=== PATIENT | female | born 1965 | race Caucasian/White ===

== ENCOUNTER 2020-10-20 14:48 | Outpatient (REF) | payer BC, SELFPAY ==
--- NOTE | ~2020-10-20 | MM_ITS ---
EXAMINATION: MM SCREENING DIGITAL BREAST TOMOSYNTHESIS, BILATERAL CLINICAL INFORMATION: Screening. Asymptomatic. The lifetime risk of breast cancer based on the Tyrer-Cuzick Model is 9%. COMPARISON: Mammography: 06/25/2019, 05/17/2018, 04/15/2017 TECHNIQUE: Digital breast tomosynthesis is performed in both the craniocaudal and mediolateral oblique views along with computer-aided detection (CAD). Synthesized 2D images are generated from the tomosynthesis. Additional left CC view is provided. FINDINGS: There are scattered areas of fibroglandular density (ACR BI-RADS breast composition Category b). There are no significant masses, abnormal calcifications, or other abnormalities. Nodularity central right breast on CC view is decreased since 2017. There is a dermal lesion overlying the central inner left breast on CC view. The axilla and skin contours are unremarkable. No significant changes from prior exams. MM/MM tomosynthesis screening BI IMPRESSION: No mammographic evidence of malignancy. ASSESSMENT: BI-RADS 2: Benign RECOMMENDATION: Routine annual mammography screening. This patient's information was entered into a reminder system with a target due date for their next mammogram.
== END 2020-10-20 14:49 | disposition home or self-care (01) ==
LOC: HO.MAMMO 14:48
PROVIDERS: PCP Internal Medicine; Visit Provider Internal Medicine
DX: Z12.31 Encounter for screening mammogram for malignant neoplasm of breast (principal)
CPT/HCPCS: 77063; 77067

== ENCOUNTER 2021-12-01 11:52 | Outpatient (REF) | payer BC, SELFPAY ==
--- NOTE | ~2021-12-01 | MM_ITS ---
EXAMINATION: MM SCREENING DIGITAL BREAST TOMOSYNTHESIS, BILATERAL CLINICAL INFORMATION: Screening. Asymptomatic. Status post benign breast biopsy The lifetime risk of breast cancer based on the Tyrer-Cuzick Model is 6.9%. COMPARISON: Mammography: October 20, 2020 and studies dating back to June 15, 2011 TECHNIQUE: Digital breast tomosynthesis is performed in both the craniocaudal and mediolateral oblique views along with computer-aided detection (CAD). Synthesized 2D images are generated from the tomosynthesis. FINDINGS: There are scattered areas of fibroglandular density (ACR BI-RADS breast composition Category b). There are no new significant masses, abnormal calcifications, or other abnormalities. Region of stable architectural distortion seen upper outer aspect of the left breast. MM/MM tomosynthesis screening BI IMPRESSION: There are no significant changes from prior study. ASSESSMENT: BI-RADS 2: Benign RECOMMENDATION: Routine annual mammography screening. This patient's information was entered into a reminder system with a target due date for their next mammogram.
== END 2021-12-01 11:53 | disposition home or self-care (01) ==
LOC: HO.MAMMO 11:52
PROVIDERS: Visit Provider Internal Medicine
DX: Z12.31 Encounter for screening mammogram for malignant neoplasm of breast (principal)
CPT/HCPCS: 77063; 77067

== ENCOUNTER 2022-06-22 15:20 | Outpatient (REF) | payer BC, SELFPAY | END 2022-06-22 15:21 | disposition home or self-care (01) | LOC: HO.SH 15:20 | PROVIDERS: Visit Provider Internal Medicine | DX: Z01.118 Encounter for examination of ears and hearing with other abnormal findings (principal); H90.6 Mixed conductive and sensorineural hearing loss, bilateral | CPT/HCPCS: 92557; 92567 ==

== ENCOUNTER 2023-02-14 15:09 | Outpatient (REF) | payer BC, SELFPAY | END 2023-02-14 15:10 | disposition home or self-care (01) | LOC: HO.MAMMO 15:09 | PROVIDERS: Visit Provider Internal Medicine | DX: Z12.31 Encounter for screening mammogram for malignant neoplasm of breast (principal) | CPT/HCPCS: 77063; 77067 ==

== ENCOUNTER → 2023-02-14 15:30 | Outpatient (BNV) | payer BC, SELFPAY | PROVIDERS: Visit Provider Radiology Diagnostic Radiology | DX: Z12.31 Encounter for screening mammogram for malignant neoplasm of breast (principal) | CPT/HCPCS: 77063; 77067 ==

== ENCOUNTER 2024-04-24 14:41 | Outpatient (REF) | payer BC, SELFPAY ==
--- OUTSIDE RECORDS SUMMARY | 2024-04-25 22:10 | XMS_ITS | Continuity of Care Document ---
Author Organization [facility] Jaiden lt Address [address] [place] [address]- Care Team Providers Care Fuse Coiler Name Role Phone Susana DE LA TORRE, Eliseo Jimenez Primary Care Physician Encounter [facility] [place] Date(s): 03/16/24 - 04/15/24 [facility] Adult [address] [place] [address]- Encounter Type: Triage Allergies, Adverse Reactions, Alerts No Known Allergies Immunizations Given and Recorded Vaccine Date Status Refusal Reason pneumococcal 20-valent conjugate vaccine 1 11/05/22 Given tetanus/diphtheria/pertussis, acel(Tdap) 05/18/22 Given tetanus/diphtheria/pertussis, acel(Tdap) 12/03/11 Recorded SARS-CoV-2 mRNA (aavyjap-peox-szggh) vax 11/26/21 Recorded SARS-CoV-2 (COVID-19) mRNA BNT-162b2 vac 03/09/21 Recorded SARS-CoV-2 (COVID-19) mRNA BNT-162b2 vac 08/15/20 Given SARS-CoV-2 (COVID-19) mRNA BNT-162b2 vac 07/25/20 Given influenza virus vaccine, inactivated 02/04/21 Levi rded influenza virus vaccine, inactivated 02/07/20 Levi rded 1Result Comment: [facility]-[id number] Medications atorvastatin 10 mg oral tablet 1 tablet, By Mouth, Daily, # 90 tablet, 3 Refills, Maintenance, 01/27/24 2:31:00 PM EDT, [id number], 160, cm, 09/06/23 9:12:00 EDT, Height, 98.3, kg, 09/06/23 9:12:00 EDT, Dry Weight Start Date: 01/27/24 Status: Ordered Quantity: 90.0 Unit: tablet Repeat number: 1 Augmentin 875 mg-125 mg oral tablet 1 tablet, By Mouth, Every 12 hours, # 14 tablet, 0 Refills, Maintenance, 03/16/24 11:16:00 AM EDT, [facility]/pharmacy #[id number], Partial fill upon patient request if the prescription is for a schedule II opioiddrug., 160, cm, 03/16/24 11:05:00 EDT, Height, 98.3, kg, 09/06/23 9:12:00 EDT, Dry Weight Start Date: 03/16/24 Status: Ordered Quantity: 14.0 Unit: tablet Repeat number: 1 citalopram 20 mg oral tablet See Instructions, TAKE 1 TABLET BY MOUTH EVERY DAY, # 90 tablet, 1 Refills, Maintenance, 03/14/24 10:15:00 AM EDT, [facility] STORE [facility]016, 160, cm, 01/30/24 9:56:00 EDT, Height, 98.3, kg, 09/06/23 9:12:00 EDT, Dry Weight Start Date: 03/14/24 Status: Ordered Quantity: 90.0 Unit: tablet Repeat number: 1 citalopram 20 mg oral tablet 1 tablet, By Mouth, Daily, # 90 tablet, 1 Refills, Maintenance, 07/21/23 8:31:00 PM EST, [facility]/pharmacy#[id number], 162, cm, 11/05/22 14:07:00 EDT, Height Start Date: 07/21/23 Status: Ordered Quantity: 90.0 Unit: tablet Repeat number: 2 hydrochlorothiazide-lisinopril 12.5 mg-20 mg oral tablet 1 tablet, By Mouth, Daily, # 30 tablet, 11 Refills, Maintenance, 02/13/24 8:20:00 AM EDT, [facility], 30, TAKE 1 TABLET BY MOUTH EVERY DAY, 160, cm, 01/30/24 9:56:00 EDT, Height, 98.3, kg, 09/06/23 9:12:00 EDT, Dry Weight Start Date: 02/13/24 Status: Ordered Quantity: 30.0 Unit: tablet Repeat number: 1 Lisinopril = 20 mg, By Mouth, Daily in AM, 0 Refills, Maintenance, 08/10/23 9:56:00 AM EDT, Partial fill upon patient request if the prescription is for a schedule II opioid drug. Start Date: 08/10/23 Status: Ordered Repeat number: 1 NIFEdipine (Eqv-Procardia XL) 60 mg oral tablet, extended release 1 tablet, By Mouth, 2 times a day, # 180 tablet, 0 Refills, Maintenance, 01/23/24 8:07:00 AM EDT, [facility]/pharmacy #[id number], 160, cm, 09/06/23 9:12:00 EDT, Height, 98.3, kg, 09/06/23 9:12:00 EDT, Dry Weight Start Date: 01/23/24 Status: Ordered Quantity: 180.0 Unit: tablet Repeat number: 1 ofloxacin 0.3% otic solution 5, drops, Ear, Right, 2 times a day, # 5 mL, Refills 0, Tot. Refills 0, Maintenance, 05/18/22 8:17:00AM EST, Route to Pharmacy Electronically, [facility]/pharmacy #[id number], Partial fill upon patient request if the prescription is for a schedule II opioid drug., 162, cm, 05/18/22 8:14:00 EST, Height Start Date: 05/18/22 Status: Ordered Quantity: 5.0 Unit: mL Repeat number: 1 Problem List Condition Confirmation Course Effective Dates Status H ealth Status Informant Alcoholism Confirmed Active Elevated ALT measurement Confirmed Active Anxiety Confirmed Active Right cervical radiculopathy Confirmed Active Depression Confirmed Active History of hysterectomy Confirmed Active Hyperglycemia Confirmed Active Hyperlipidemia Confirmed Active HTN (hypertension) Confirmed Active Impaired fasting glucose Confirmed Active Knee pain Confirmed Active Abnormal mammogram Confirmed Active Axillary lump Confirmed Active Morbid obesity Confirmed Active Sensorineural hearing loss Confirmed Active Severe obesity (BMI 35.0-39.9) with comorbidity Confirmed Active 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 Active Thrombophlebitis Confirmed Active Tobacco use Confirmed Active Leiomyoma of uterus Confirmed Active Social History Social History Type Response Smoking Status Former smoker, quit more than 30 days ago entered on: 11/05/22 Sex Sex Representation Female (finding) Patient Care team information Care Team Personnel Name: Sae Rodriguez RN Position: [facility] RN W/OE and Tasks Member Role: Primary Care Nurse Name: Tri Roque RN [facility] RN Supv Member Role: Primary Care Nurse Name: Edgardo Moreland RN Position: [facility] RN Member Role: Primary Care Nurse Name: Liam Pereira RN Position: [facility] RN Member Role: Primary Care Nurse Name: Eliseo Meza MD Position: [facility] Physician - Primary Care Member Role: PCP Address: [address] [place] [phone]- Telecom: Name: Alissa Aranda RN Position: [facility] Hospital Psychologist Experimental Member Role: Primary Care Nurse Care Team Related Persons Name: EULALIA ROY Name: KEERTHI ROY Insurance Providers Guarantor name: JUSTIN ROY Health Plan Information #: 1 Payer: HMO BLUE IN NETWORK Member Number: NA Policy Number: NA Group Number: NA
--- OUTSIDE RECORDS SUMMARY | 2024-04-25 22:10 | XMS_ITS | Continuity of Care Document ---
Author Organization [facility] Jaiden lt Address [address] [place] [address]- Care Team Providers Care Automobile Drivers Name Role Phone Susana DE LA TORRE, Eliseo Jimenez Primary Care Physician [phone] Encounter [facility] [place] Date(s): 03/16/24 - 04/15/24 [facility] Adult [address] [place] [address]- Attending Physician: Admtr, Ar8 Admitting Physician: Admtr, Ar8 Referring Physician: Admtr, Ar8 Encounter Type: Triage Allergies, Adverse Reactions, Alerts No Known Allergies Immunizations Given and Recorded Vaccine Date Status Refusal Reason pneumococcal 20-valent conjugate vaccine 1 11/05/22 Given tetanus/diphtheria/pertussis, acel(Tdap) 05/18/22 Given tetanus/diphtheria/pertussis, acel(Tdap) 12/03/11 Recorded SARS-CoV-2 mRNA (iectvbm-odec-oobpa) vax 11/26/21 Recorded SARS-CoV-2 (COVID-19) mRNA BNT-162b2 vac 03/09/21 Recorded SARS-CoV-2 (COVID-19) mRNA BNT-162b2 vac 08/15/20 Given SARS-CoV-2 (COVID-19) mRNA BNT-162b2 vac 07/25/20 Given influenza virus vaccine, inactivated 02/04/21 Levi rded influenza virus vaccine, inactivated 02/07/20 Levi rded 1Result Comment: [facility]-[id number] Medications atorvastatin 10 mg oral tablet 1 tablet, By Mouth, Daily, # 90 tablet, 3 Refills, Maintenance, 01/27/24 2:31:00 PM EDT, [id number], 160, cm, 09/06/23 9:12:00 EDT, Height, 98.3, kg, 09/06/23 9:12:00 EDT, Dry Weight Start Date: 01/27/24 Status: Ordered Quantity: 90.0 Unit: tablet Repeat number: 1 Augmentin 875 mg-125 mg oral tablet 1 tablet, By Mouth, Every 12 hours, # 14 tablet, 0 Refills, Maintenance, 03/16/24 11:16:00 AM EDT, [facility]/pharmacy #[id number], Partial fill upon patient [...] 1 Refills, Maintenance, 03/14/24 10:15:00 AM EDT, [facility], 160, cm, 01/30/24 9:56:00 EDT, Height, 98.3, kg, 09/06/23 9:12:00 EDT, Dry Weight Start Date: 03/14/24 Status: Ordered Quantity: 90.0 Unit: tablet Repeat number: 1 citalopram 20 mg oral tablet 1 tablet, By Mouth, Daily, # 90 tablet, 1 Refills, Maintenance, 07/21/23 8:31:00 PM EST, [facility]/pharmacy#[id number], 162, cm, 11/05/22 14:07:00 EDT, Height Start Date: 07/21/23 Status: Ordered Quantity: 90.0 Unit: tablet Repeat number: 2 hydrochlorothiazide-lisinopril 12.5 mg-20 mg oral tablet 1 tablet, By Mouth, Daily, # 30 tablet, 11 Refills, Maintenance, 02/13/24 8:20:00 AM EDT, [facility], 30, TAKE 1 TABLET BY MOUTH EVERY [...] 0 Refills, Maintenance, 01/23/24 8:07:00 AM EDT, [facility]/pharmacy #[id number], 160, cm, 09/06/23 9:12:00 EDT, Height, 98.3, kg, 09/06/23 9:12:00 EDT, Dry Weight Start Date: 01/23/24 Status: Ordered Quantity: 180.0 Unit: tablet Repeat number: 1 ofloxacin 0.3% otic solution 5, drops, Ear, Right, 2 times a day, # 5 mL, Refills 0, Tot. Refills 0, Maintenance, 05/18/22 8:17:00AM EST, Route to Pharmacy Electronically, [facility]/pharmacy #[id number], Partial fill upon patient [...] Confirmed Active Leiomyoma of uterus Confirmed Active Procedures Procedure Date Related Diagnosis Body Site Status Arthroscopy of knee 1 Com pleted Hysterectomy Completed Tonsillectomy and adenoidectomy Completed Tympanoplasty Completed 1WITH MENISCECTOMY Social History Social History Type Response Smoking Status Former smoker, quit more than 30 days ago entered on: 11/05/22 Sex Sex Representation Female (finding) EKG study * Event Display: EKG Authored Date: MG Breast Views * Event Display: MM Mammogram Authored Date: * Event Display: MM Mammogram Authored Date: * Event Display: MM Mammogram Authored Date: Patient Care team information Care Team Personnel Name: Sae Rodriguez RN Position: [facility] ED RN W/OE and Tasks Member Role: Primary Care Nurse Name: Tri Roque RN Position: [facility] RN Supv Member Role: Primary Care Nurse Name: Edgardo Moreland RN Position: [facility] RN Member Role: Primary Care Nurse Name: Liam Pereira RN Position: [facility] RN Member Role: Primary Care Nurse Name: Eliseo Meza MD Position: [facility] Physician - Primary Care Member Role: PCP Address: [address] [place] [id number] Telecom: Name: Alissa Aranda RN Position: [facility] Hospital Relief Pharmacist Member Role: Primary Care Nurse Care Team Related Persons Name: EULALIA ROY Name: KEERTHI ROY Insurance Providers Guarantor name: JUSTIN ROY Health Plan Information #: 1 Payer: O BLUE IN NETWORK Member Number: NA Policy Number: NA Group Number: NA
--- OUTSIDE RECORDS SUMMARY | 2024-04-25 22:10 | XMS_ITS | Continuity of Care Document ---
Author Organization [facility] Jaiden lt Address [address] [place] [address]- Care Team Providers Care Side Stitching Machine Operator Name Role Phone Susana DE LA TORRE, Eliseo Jimenez Primary Care Physician Encounter [facility] [place] Date(s): 03/14/24 - 04/13/24 [facility] Adult [address] [place] [address]- Encounter Type: Triage Allergies, Adverse Reactions, Alerts No Known Allergies Immunizations Given and Recorded Vaccine Date Status Refusal Reason pneumococcal 20-valent conjugate vaccine 1 11/05/22 Given tetanus/diphtheria/pertussis, acel(Tdap) 05/18/22 Given tetanus/diphtheria/pertussis, acel(Tdap) 12/03/11 Recorded SARS-CoV-2 mRNA (gowzxce-mthz-wdmar) vax 11/26/21 Recorded SARS-CoV-2 (COVID-19) mRNA BNT-162b2 vac 03/09/21 Recorded SARS-CoV-2 (COVID-19) mRNA BNT-162b2 vac 08/15/20 Given SARS-CoV-2 (COVID-19) mRNA BNT-162b2 vac 07/25/20 Given influenza virus vaccine, inactivated 02/04/21 Levi rded influenza virus vaccine, inactivated 02/07/20 Levi rded 1Result Comment: [id number] Medications atorvastatin 10 mg oral tablet 1 tablet, By Mouth, Daily, # 90 tablet, 3 Refills, Maintenance, 01/27/24 2:31:00 PM EDT, [facility], 160, cm, 09/06/23 9:12:00 EDT, Height, 98.3, kg, 09/06/23 9:12:00 EDT, Dry Weight Start Date: 01/27/24 Status: Ordered Quantity: 90.0 Unit: tablet Repeat number: 1 Augmentin 875 mg-125 mg oral tablet 1 tablet, By Mouth, Every 12 hours, # 14 tablet, 0 Refills, Maintenance, 03/16/24 11:16:00 AM EDT, [facility]/pharmacy #[id number], Partial fill upon patient request if [...] 1 Refills, Maintenance, 03/14/24 10:15:00 AM EDT, [facility] STORE [facility]14, 160, cm, 01/30/24 9:56:00 EDT, Height, 98.3, kg, 09/06/23 9:12:00 EDT, Dry Weight Start Date: 03/14/24 Status: Ordered Quantity: 90.0 Unit: tablet Repeat number: 1 citalopram 20 mg oral tablet 1 tablet, By Mouth, Daily, # 90 tablet, 1 Refills, Maintenance, 07/21/23 8:31:00 PM EST, [facility]/pharmacy#[id number], 162, cm, 11/05/22 14:07:00 EDT, Height Start Date: 07/21/23 Status: Ordered Quantity: 90.0 Unit: tablet Repeat number: 2 hydrochlorothiazide-lisinopril 12.5 mg-20 mg oral tablet 1 tablet, By Mouth, Daily, # 30 tablet, 11 Refills, Maintenance, 02/13/24 8:20:00 AM EDT, [facility], 30, TAKE 1 TABLET BY MOUTH EVERY [...] 0 Refills, Maintenance, 01/23/24 8:07:00 AM EDT, [facility]/pharmacy #[id number], 160, cm, 09/06/23 9:12:00 EDT, Height, 98.3, kg, 09/06/23 9:12:00 EDT, Dry Weight Start Date: 01/23/24 Status: Ordered Quantity: 180.0 Unit: tablet Repeat number: 1 ofloxacin 0.3% otic solution 5, drops, Ear, Right, 2 times a day, # 5 mL, Refills 0, Tot. Refills 0, Maintenance, 05/18/22 8:17:00AM EST, Route to Pharmacy Electronically, [facility]/pharmacy #[id number], Partial fill upon patient request if [...] Care Nurse Name: Tri Roque RN Position: [facility] RN Supv Member Role: Primary Care Nurse Name: Edgardo Moreland RN Position: [facility] RN Member Role: Primary Care Nurse Name: Liam Pereira RN Position: [facility] RN Member Role: Primary Care Nurse Name: Eliseo Meza MD Position: [facility] Physician - Primary Care Member Role: PCP Address: [address] [place] [phone]- Telecom: Name: Alissa Aranda RN Position: [facility] Hospital Geographic Information System Surveyor Member Role: Primary Care Nurse Care Team Related Persons Name: EULALIA ROY Name: KEERTHI ROY Insurance Providers Guarantor name: JUSTIN ROY Health Plan Information #: 1 Payer: HMO BLUE IN NETWORK Member Number: NA Policy Number: NA Group Number: NA
--- OUTSIDE RECORDS SUMMARY | 2024-04-25 22:10 | XMS_ITS | Continuity of Care Document ---
Author Organization [facility] [place] Jaiden lt Address [address] [place] [address]- Care Team Providers Care Private Equity Analyst Name Role Phone Susana DE LA TORRE, Eliseo Jimenez Primary Care Physician En[place] [facility] [place] Date(s): 03/19/24 - 04/18/24 [facility] [place] Adult [address] [place] [address]- Encounter Type: Triage Allergies, Adverse Reactions, Alerts No Known Allergies Immunizations Given and Recorded Vaccine Date Status Refusal Reason pneumococcal 20-valent conjugate vaccine 1 11/05/22 Given tetanus/diphtheria/pertussis, acel(Tdap) 05/18/22 Given tetanus/diphtheria/pertussis, acel(Tdap) 12/03/11 Recorded SARS-CoV-2 mRNA (yqltoeb-gnst-dznvu) vax 11/26/21 Recorded SARS-CoV-2 (COVID-19) mRNA BNT-162b2 vac 03/09/21 Recorded SARS-CoV-2 (COVID-19) mRNA BNT-162b2 vac 08/15/20 Given SARS-CoV-2 (COVID-19) mRNA BNT-162b2 vac 07/25/20 Given influenza virus vaccine, inactivated 02/04/21 Levi rded influenza virus vaccine, inactivated 02/07/20 Levi rded 1Result Comment: [facility]-[id number] Medications atorvastatin 10 mg oral tablet 1 tablet, By Mouth, Daily, # 90 tablet, 3 Refills, Maintenance, 01/27/24 2:31:00 PM EDT, [facility], 160, cm, 09/06/23 9:12:00 EDT, Height, 98.3, kg, 09/06/23 9:12:00 EDT, Dry Weight Start Date: 01/27/24 Status: Ordered Quantity: 90.0 Unit: tablet Repeat number: 1 Augmentin 875 mg-125 mg oral tablet 1 tablet, By Mouth, Every 12 hours, # 14 tablet, 0 Refills, Maintenance, 03/16/24 11:16:00 AM EDT, [facility]/pharmacy #[id number], Partial fill upon patient request if [...] 1 Refills, Maintenance, 03/14/24 10:15:00 AM EDT, [facility] STORE [address]37, 160, cm, 01/30/24 9:56:00 EDT, Height, 98.3, kg, 09/06/23 9:12:00 EDT, Dry Weight Start Date: 03/14/24 Status: Ordered Quantity: 90.0 Unit: tablet Repeat number: 1 citalopram 20 mg oral tablet 1 tablet, By Mouth, Daily, # 90 tablet, 1 Refills, Maintenance, 07/21/23 8:31:00 PM EST, [facility]/pharmacy#0315, 162, cm, 11/05/22 14:07:00 EDT, Height Start Date: 07/21/23 Status: Ordered Quantity: 90.0 Unit: tablet Repeat number: 2 hydrochlorothiazide-lisinopril 12.5 mg-20 mg oral tablet 1 tablet, By Mouth, Daily, # 30 tablet, 11 Refills, Maintenance, 02/13/24 8:20:00 AM EDT, [facility], 30, TAKE 1 TABLET BY MOUTH EVERY [...] 0 Refills, Maintenance, 01/23/24 8:07:00 AM EDT, [facility]/pharmacy #0315, 160, cm, 09/06/23 9:12:00 EDT, Height, 98.3, kg, 09/06/23 9:12:00 EDT, Dry Weight Start Date: 01/23/24 Status: Ordered Quantity: 180.0 Unit: tablet Repeat number: 1 ofloxacin 0.3% otic solution 5, drops, Ear, Right, 2 times a day, # 5 mL, Refills 0, Tot. Refills 0, Maintenance, 05/18/22 8:17:00AM EST, Route to Pharmacy Electronically, [facility]/pharmacy #[id number], Partial fill upon patient request if [...] Care Nurse Name: Tri Roque RN Position: [facility] RN Supv Member Role: Primary Care Nurse Name: Edgardo Moreland RN Position: [facility] RN Member Role: Primary Care Nurse Name: Liam Pereira RN Position: [facility] RN Member Role: Primary Care Nurse Name: Eliseo Meza MD Position: [facility] Physician - Primary Care Member Role: PCP Address: [address] [place] [id number]- Telecom: Name: Alissa Aranda RN Position: [facility] Hospital Coil Shaper Member Role: Primary Care Nurse Care Team Related Persons Name: EULALIA ROY Name: KEERTHI ROY Insurance Providers Guarantor name: JUSTIN ROY Health Plan Information #: 1 Payer: HMO BLUE IN NETWORK Member Number: NA Policy Number: NA Group Number: NA
--- OUTSIDE RECORDS SUMMARY | 2024-04-25 22:10 | XMS_ITS | Data Portability ---
Author Organization [place] - [facility], Allergy Address [address] [address] Care Team Providers Care Dipping Machine Operator Name Role Phone IRISH ESPINOZA Primary Care Provider Assessment Encounter Date Assessment Date Assessment LastModified by Organization Details LastModified Time 10/03/2023 10/03/2023 Patient has significant granulation tissue and some otorrhea in the right external auditory canal which was cleaned out today. Silver nitrate applied to the site of granulation. I am placing the patient on topical TobraDex drops to be used twice a day for 2 weeks. Follow-up in 4 weeks for reevaluation. She will continue to maintain dry ear precautions. [email or web address] Not available 10/03/2023 11:13:19 10/31/2023 10/31/2023 The right ear has healed well following tympanoplasty. All water and activity precautions are lifted.Audiomet kayli testing today showed improvement in the hearing compared to preoperative audiogram. This may continue to improve over time. Recommend follow-up exam and audiogram in 6 months. Not available 10/31/2023 12:01:50 Plan of Treatment Reminders Order Date Submit Date Provider Last Modified By Organization Details Last Modified Time Details Appointments Hearing Test 2023 09:30A M Hearing Test Not available Not available Not available Establish ed 10 2023 09:50A M JORDY SHAW MD Not available Not available Not available Lab None recorded. Referral None recorded. Procedures None recorded. Surgeries None recorded. Imaging None recorded. Medication Orders TobraDex 0.3 %-0.1 % eye drops,enrrique pension 2023 024 [email or web address] [id number], [address] [place], [address], 10/31/2023 11:13:58 Patient TargetsNo targets recorded. Patient InstructionsNo instructions recorded. Reason for Referral None Reported. Results Created Date Observation Date Name Description Value Unit Range Abnormal Flag Note LastModifiedBy Organization Detail LastModifiedTime 10/31/19 audio gram No observ ation record ed. BARCODE Not Available 2023 16:21:04 01/05/20 24 05/31/2023 imagi ng/di agnos tic resul t No observ ation record ed. [email or web address] Not Available 18:28:27 01/05/20 24 06/22/2022 imagi ng/di agnos tic resul t No observ ation record ed. [email or web address] Not Available 18:28:30 01/05/20 24 07/21/2023 imagi ng/di agnos tic resul t No observ ation record ed. [email or web address] Not Available 18:28:35 Result Notes None recorded. Problems Name Problem SNOMED Code Status Onset Date Resolution Date Notes Provider Name and Address Organization Details Recorded Time Sensorine ural hearing loss in left ear 69727275722 109 Active 2023 Sensorine ural hearing loss, unilatera l, left ear, with restricte d hearing on the contralat eral side; Note: Date Diagnosed : 05/31/2023 9:58 AM (H90.A22) Not Available [facility] 4 03:12:55 Otorrhea of right ear 64888014803 91563 Active 2022 Otorrhea, right ear; Note: Date Diagnosed : 11/01/2022 11:24 AM (H92.11) Not Available [facility] 4 03:12:55 Mixed conductiv e and sensorine ural hearing loss, bilateral 595254020 Active 2022 Mixed conductiv e and sensorine ural hearing loss, bilateral ; Note: Date Diagnosed : 11/01/2022 11:24 AM (H90.6) Not Available [facility] 4 03:12:55 Mixed conductiv e and sensorine ural hearing loss of right ear 14821185282 105 Active 2023 Mixed conductiv e and sensorine ural hearing loss, unilatera l, right ear, with unrestric gustabo hearing on the contralat eral side; Note: Date Diagnosed : 05/31/2023 9:58 AM (H90.71) Not Available [facility] 4 03:12:55 Abnormal granulati on tissue 12325840 Active 2023 JORDY SHAW MD [address] [place] [address], [place], [address] , [facility] - [facility] 4 11:07:37 Follow-up visit Active 2023 Medical surveilla nce following completed treatment ; Note: Date Diagnosed : 08/22/2023 2:42 PM (Z09) Not Available [facility] 4 03:12:54 Tympanosc lerosis of right middle ear 63426256083 216507 Active 2023 Tympanosc lerosis, right ear; Note: Date Diagnosed : 08/12/2023 2:27 PM (H74.01) Not Available [facility] 4 03:12:54 Granuloma tous disorder of the skin and subcutane ous tissue 337487419 Active 2022 Granuloma tous disorder of the skin and subcutane ous tissue, unspecifi ed; Note: Date Diagnosed : 11/30/2022 3:42 PM (L92.9) Not Available [facility] 4 03:12:55 Foreign body in right ear 59271301699 159409 Active 2023 Foreign body in right ear, subsequen t encounter ; Note: Date Diagnosed : 08/12/2023 3:01 PM (T16.1XXD ) Not Available [facility] 4 03:12:55 Marginal perforati on of tympanic membrane 50210739 Active 2023 Other marginal perforati ons of tympanic membrane, right ear; Note: Date Diagnosed : 08/12/2023 2:23 PM (H72.2X1) Not Available [facility] 4 03:12:56 Problem Notes None recorded. Procedures Surgical History Date Name Laterality Status Provider Name and Address Organization Details Recorded Time 10/31/19 24 Comp Audio with Tymps (83996 & 12268) completed AMARILYS INMAN, [facility] [address] [address], [place], [address], [facility] - [facility] 10/31/2023 11:31:45 08/12/19 24 type 2 tympanoplasty completed Ida Woodruff [facility] - [facility] 10/03/2023 11:16:30 Imaging Results Imaging Date Name Status LastModified by Organiz ation Details LastModified Time 10/31/2023 audiogram completed BAR[facility] Information no t available 10/31/2023 16:21:04 05/31/2023 imaging/diagno stic result completed [email or web address] Information not available 01/05/2024 18:28:27 06/22/2022 imaging/diagno stic result completed [email or web address] Information not available 01/05/2024 18:28:30 07/21/2023 imaging/diagno stic result completed [email or web address] Information not available 01/05/2024 18:28:35 Procedure Notes None recorded. Medical Equipment None Reported. Allergies No known drug allergies Medications Name Sig Start Date Stop Date Status Note LastModified by Organization Details LastModified Time prednison e 10 mg tablet TAKE 4 TABS DAILY FOR 3 DAYS, 3 TABS DAILY FOR 3 DAYS,2 TABS DAILY FOR 3 DAYS,THE N 1 TAB DAILY 10/30 completed Not Available Not Available Not Available atorvasta tin 10 mg tablet active Medicati on ID: [id number] B rand Name: atorvast atin Sen d Method: E-Prescr ibed Sub s Allowed: subs OK Medic ationGen ericName : atorvast atin Not Available Not Available Not Available lisinopri l 20 mg-hydroc hlorothia zide 12.5 mg tablet active Medicati on ID: [id number] B rand Name: lisinopr il-hydro chloroth iazide S end Method: E-Prescr ibed Sub s Allowed: subs OK Medic ationGen ericName : lisinopr il-hydro chloroth iazide Not Available Not Available Not Available ofloxacin 0.3 % ear drops INSTILL 4 DROPS INTO THE RIGHT EAR TWICE A DAY 10/02 completed Not Available Not Available Not Available citalopra m 20 mg tablet active Medicati on ID: [id number] B rand Name: citalopr am Send Method: E-Prescr ibed Sub s Allowed: subs OK Medic ationGen ericName : citalopr am Not Available Not Available Not Available nifedipin e ER 60 mg tablet,ex tended release 24 hr active Medicati on ID: [id number] B rand Name: nifedipi ne Send Method: E-Prescr ibed Sub s Allowed: subs OK Medic ationGen ericName : nifedipi ne Not Available Not Available Not Available tobramyci n 0.3 %-dexamet hasone 0.1 % eye drops,enrrique pension APPLY 4 DROPS INTO THE RIGHT EAR TWICE A DAY FOR 2 WEEKS 10/30 completed Not Available Not Available Not Available oxycodone 5 mg tablet TAKE 1 TABLET ORAL EVERY FOUR HOURS NEEDED FOR PAIN 10/02 completed Not Available Not Available Not Available escitalop johana 20 mg tablet TAKE 1 TABLET BY MOUTH EVERY DAY 10/02 completed Not Available Not Available Not Available ciproflox acin 0.3 %-dexamet hasone 0.1 % ear drops,enrrique pension INSTILL 4 DROP INTO RIGHT EAR TWICE A DAY DIRECTED X 14 DAYS 10/30 completed Not Available Not Available Not Available GaviLyte- G 236 gram-22.7 4 gram-6.74 gram-5.86 gram oral solution PLEASE SEE ATTACHED FOR DETAILED DIRECTIO NS 10/02 completed Not Available Not Available Not Available Vitals Date Recorded Body height Body weight Provider Name and Address Organization Details Last Updated DateTime 10/31/2023 160.02 cm 80971.36 g Ida Woodruff [place] - [facility] 10/31/2023 11:13:41 Social History None recorded. Functional Status None recorded. Mental Status None recorded. Family History Nothing Reported. Medical History Condition Response High Cholesterol Y Hypertension Y Gynecological HistoryNo gynecological history recorded. Obstetrics History GPAL:G 0 P 0 0 0 0 Past Encounters Encounter ID Performer Location Encounter Start Date Encounter Closed Date Diagnosis/Indication Diagnosis SNOMED-CT Code Diagnosis ICD10 Code [id number] JORDY SHAW MD [facility] [address] [place] [address] 10/03/2023 10:48:43 10/03/2023 13:48:48 Abnormal granulation tissue 72204923 L92.9 Otorrhea of right ear 10 94379176 026876 H92.11 [id number] JORDY SHAW MD [facility] [address] [place] [address] 10/31/2023 10:41:17 10/31/2023 12:03:54 Mixed conductive and sensorineural hearing loss of right ear 0060624776 9105 H90.71 Sensorineu ral hearing loss in left ear 4914281881 9109 H90.A22 Health Concerns Section Related Observation LastModified by Organization Detai ls LastModified Time None Recorded Concern Status LastModified by Organization Details LastModified Time None Recorded Advance Directives Directive None Recorded Payers Encounter Date Sequence Insurance Name Policy Number Policy Larsen Covered Member ID Larsen Member ID Guarantor Name 10/03/2023 1 [facility] [place] [place] [id number] Lotus Cuellar [id number] Lotus Cuellar 10/31/2023 1 [facility] [facility] [place] [place] [id number] Lotus Cuellar [id number] Lotus Cuellar Notes Date Note Type Note Provider Name and Address Organization Details Recorded Time 10/03/2023 text/html Status post righ t revision postauricular tympanoplasty with underlay fascia graft on 08/12/2023. 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 This was removed and the ossicular chain was noted to be intact and mobile. Uneventful postoperative course. Patient was able to use drops as prescribed. She still notes hearing loss in the right ear compared to the left. JORDY SHAW MD [address] [place] [address], [address], [place] - [facility] 10/03/2023 11:15:09 10/31/2023 text/html Status post righ t postauricular tympanoplasty on August 12, 2023. 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 A 60% perforation of the posterior half of the tympanic membrane was repaired using an underlay fascia graft. JORDY SHAW MD [address] [place] [address], [place], [address], [facility] - [facility] 10/31/2023 12:02:16 OBGyn Episode No OBEpisode recorded.
--- OUTSIDE RECORDS SUMMARY | 2024-04-25 22:10 | XMS_ITS | Continuity of Care Document ---
Author Organization [facility] [place] Address [address] [place] [address]- Care Team Providers Care Asset Protection Officer Name Role Phone Susana DE LA TORRE, Eliseo Jimenez Primary Care Physician Encounter [facility] Date(s): 03/15/24 - 04/14/24 [facility] [address] [place] [address]- Encounter Type: Triage Allergies, Adverse Reactions, Alerts No Known Allergies Immunizations Given and Recorded Vaccine Date Status Refusal Reason pneumococcal 20-valent conjugate vaccine 1 11/05/22 Given tetanus/diphtheria/pertussis, acel(Tdap) 05/18/22 Given tetanus/diphtheria/pertussis, acel(Tdap) 12/03/11 Recorded SARS-CoV-2 mRNA ([id number]) vax 11/26/21 Recorded SARS-CoV-2 (COVID-19) mRNA BNT-162b2 vac 03/09/21 Recorded SARS-CoV-2 (COVID-19) mRNA BNT-162b2 vac 08/15/20 Given SARS-CoV-2 (COVID-19) mRNA BNT-162b2 vac 07/25/20 Given influenza virus vaccine, inactivated 02/04/21 Levi rded influenza virus vaccine, inactivated 02/07/20 Levi rded 1Result Comment: [facility]-[id number] Medications atorvastatin 10 mg oral tablet 1 tablet, By Mouth, Daily, # 90 tablet, 3 Refills, Maintenance, 01/27/24 2:31:00 PM EDT, [id number], 160, cm, 09/06/23 9:12:00 EDT, Height, 98.3, kg, 09/06/23 9:12:00 EDT, Dry Weight Start Date: 01/27/24 Status: Ordered Quantity: 90.0 Unit: tablet Repeat number: 1 Augmentin 875 mg-125 mg oral tablet 1 tablet, By Mouth, Every 12 hours, # 14 tablet, 0 Refills, Maintenance, 03/16/24 11:16:00 AM EDT, [facility]/pharmacy #[id number], Partial fill upon patient request [...] 1 Refills, Maintenance, 03/14/24 10:15:00 AM EDT, [id number], 160, cm, 01/30/24 9:56:00 EDT, Height, 98.3, kg, 09/06/23 9:12:00 EDT, Dry Weight Start Date: 03/14/24 Status: Ordered Quantity: 90.0 Unit: tablet Repeat number: 1 citalopram 20 mg oral tablet 1 tablet, By Mouth, Daily, # 90 tablet, 1 Refills, Maintenance, 07/21/23 8:31:00 PM EST, [facility]/pharmacy#[id number], 162, cm, 11/05/22 14:07:00 EDT, Height Start Date: 07/21/23 Status: Ordered Quantity: 90.0 Unit: tablet Repeat number: 2 hydrochlorothiazide-lisinopril 12.5 mg-20 mg oral tablet 1 tablet, By Mouth, Daily, # 30 tablet, 11 Refills, Maintenance, 02/13/24 8:20:00 AM EDT, [facility], 30, TAKE 1 TABLET BY MOUTH EVERY [...] 0 Refills, Maintenance, 01/23/24 8:07:00 AM EDT, [facility]/pharmacy #[id number], 160, cm, 09/06/23 9:12:00 EDT, Height, 98.3, kg, 09/06/23 9:12:00 EDT, Dry Weight Start Date: 01/23/24 Status: Ordered Quantity: 180.0 Unit: tablet Repeat number: 1 ofloxacin 0.3% otic solution 5, drops, Ear, Right, 2 times a day, # 5 mL, Refills 0, Tot. Refills 0, Maintenance, 05/18/22 8:17:00AM EST, Route to Pharmacy Electronically, [facility]/pharmacy #[id number], Partial fill upon patient request [...] Care Nurse Name: Tri Roque RN Position: [facility] RN Supv Member Role: Primary Care Nurse Name: Edgardo Moreland RN Position: [facility] RN Member Role: Primary Care Nurse Name: Liam Pereira RN Position: [facility] RN Member Role: Primary Care Nurse Name: Eliseo Meza MD Position: [facility] Physician - Primary Care Member Role: PCP Address: [address] [place] [address]- Telecom: Name: Alissa Aranda RN Position: [facility] Hospital Contact Lens Polisher Member Role: Primary Care Nurse Care Team Related Persons Name: EULALIA ROY Name: KEERTHI ROY Insurance Providers Guarantor name: JUSTIN ROY Health Plan Information #: 1 Payer: HMO [employer] Member Number: NA Policy Number: NA Group Number: NA
== END 2024-04-24 14:42 | disposition home or self-care (01) ==
LOC: HO.MAMMO 14:41
PROVIDERS: Visit Provider Internal Medicine
DX: Z12.31 Encounter for screening mammogram for malignant neoplasm of breast (principal)
CPT/HCPCS: 77063; 77067

== ENCOUNTER → 2024-04-24 15:30 | Outpatient (BNV) | payer BC, SELFPAY | PROVIDERS: Visit Provider Internal Medicine | DX: Z12.31 Encounter for screening mammogram for malignant neoplasm of breast (principal) | CPT/HCPCS: 77063; 77067 ==

== ENCOUNTER 2025-04-30 14:25 | Outpatient (REF) | payer BC, SELFPAY ==
--- OUTSIDE RECORDS SUMMARY | 2025-04-30 18:42 | XMS_ITS | Data Portability ---
Author Organization [place] - 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 [email or web address] Not available 10/03/2023 11:13:19 10/31/2023 10/31/2023 The right ear has healed well following tympanoplasty. All water and activity precautions are lifted.Audiometr ic testing today showed improvement in the hearing compared to preoperative audiogram. This may continue to improve over time. Recommend follow-up exam and audiogram in 6 months. [email or web address] Not available 10/31/2023 12:01:50 05/10/2024 05/10/2024 The right ear remains well-healed following tympanoplasty. Audiometric testing today showed mild residual mixed hearing loss on the right. She has sensorineural hearing loss on the left. Today we discussed that the ear should remain healthy long-term. No water precautions. We discussed her audiometric testing in detail and discussed her candidacy for amplification. She does not think her hearing loss is bothering her that much as to want to consider amplification. We discussed how her hearing loss may have an effect on hearing in noise and with directional hearing. Patient will think about this and contact us if she wants to learn more about amplification options which can be done through our office. Otherwise she will follow-up as needed edith Not available 05/10/2024 10:26:47 Plan of Treatment Reminders Order Date Submit Date Provider Last Modified By Organization Details Last Modified Time Details Appointments None recorded. Lab None recorded. Referral None recorded. Procedures None recorded. Surgeries None recorded. Imaging None recorded. Medication Orders TobraDex 0.3 %-0.1 % eye drops,susp ension 2023 024 [email or web address] [id number], [address] [place] [address], [place], [address], 11:13:58 Patient TargetsNo targets recorded. Patient InstructionsNo [...] ation record ed. [email or web address] Not Available 18:28:35 05/10/20 24 audio gram No observ ation record ed. [email or web address] Not Available 2023 17:51:39 Result Notes None recorded. Problems Name Problem SNOMED Code Status Onset Date Resolution Date Notes Provider Name and Address Organization Details Recorded Time Otorrhea of right ear 76525558090 14248 Completed 202205/10/2024 Otorrhea , right ear; Note: Date Diagnose d: 3 11:24 AM (H92.11) JORDY SHAW MD [address] [place] [address], [place], [address] , [place] - [facility] 4 10:24:03 Granulom atous disorder of the skin and subcutan eous tissue 534990934 Completed 202205/10/2024 Granulom atous disorder of the skin and subcutan eous tissue, unspecif ied; Note: Date Diagnose d: 3 3:42 PM (L92.9) JORDY SHAW MD [address] [facility],[place] [address], [place], [address] , [place] - [facility] 4 10:23:07 Sensorin eural hearing loss in left ear 22154504954 109 Active 2023 Sensorin eural hearing loss, unilater al, left ear, with restrict ed hearing on the contrala teral side; Note: Date Diagnose d: 4 9:58 AM (H90.A22 ) Not Available [facility] 4 03:12:55 Mixed conducti ve and sensorin eural hearing loss of right ear 99702432434 105 Active 2023 Mixed conducti ve and sensorin eural hearing loss, unilater al, right ear, with unrestri cted hearing on the contrala teral side; Note: Date Diagnose d: 4 9:58 AM (H90.71) Not Available [facility] 4 03:12:55 Tympanos clerosis of right middle ear 76896835438 487393 Active 2023 Tympanos clerosis , right ear; Note: Date Diagnose d: 4 2:27 PM (H74.01) Not Available [facility] 4 03:12:54 Foreign body in right ear 22207697494 789560 Completed 202305/10/2024 Foreign body in right ear, subseque nt encounte r; Note: Date Diagnose d: 4 3:01 PM (T16.1XX D) JORDY SHAW MD [address] [facility], [place], [address] , [place] - [facility] 4 10:23:55 Marginal perforat ion of tympanic membrane 13484157 Completed 202305/10/2024 Other marginal perforat ions of tympanic membrane , right ear; Note: Date Diagnose d: 4 2:23 PM (H72.2X1 ) JORDY SHAW MD [address] [facility],[place] [address], [place], [address] , [place] - [facility] 4 10:23:14 Follow-u p visit Active 2023 Medical surveill ance followin g complete d treatmen t; Note: Date Diagnose d: 08/22/2023 2:42 PM (Z09) Not Available [facility] 03:12:54 Abnormal granulat ion tissue 31289025 Completed 202305/10/2024 JORDY SHAW MD [address] [facility],[place] [address], [place], [address] , [place] - [facility] 4 10:23:39 Problem Notes None recorded. Procedures Surgical History Date Name Laterality Status Provider Name and Address Organization Details Recorded Time 05/10/20 24 Comp Audio with Tymps - 71662 & 03204 completed MARIELY URIAS, [facility] [address] [facility],[place] [address], [place], [address], [place] - [facility] 05/10/2024 09:37:34 10/31/19 24 Comp Audio with Tymps - 74004 & 19669 completed AMARILYS INMAN AUD [address] [facility],[address], [address], [place] - [facility] 10/31/2023 11:31:45 08/12/19 24 type 2 tympanoplasty completed Ida Woodruff [place] - [facility] 10/03/2023 11:16:30 Imaging Results None recorded. Procedure Notes None recorded. Medical Equipment None Reported. Allergies No known drug allergies Medications Name Sig Start Date Stop Date Status Note LastModified by Organization Details LastModified Time amoxicillin 500 mg capsule TAKE 1 CAPSULE BY MOUTH THREE TIMES A DAY active Not Available Not Available No t Available prednisone 10 mg tablet TAKE 4 TABS DAILY FOR 3 DAYS, 3 TABS DAILY FOR 3 DAYS,2 TABS DAILY FOR 3 DAYS,THEN 1 TAB DAILY 10/30 completed Not Available Not Available Not Available atorvastati n 10 mg tablet TAKE 1 TABLET BY MOUTH EVERY DAY active Not Available Not Available No t Available lisinopril 20 mg-hydrochl orothiazide 12.5 mg tablet TAKE 1 TABLET BY MOUTH EVERY DAY active Not Available Not Available No t Available prednisone 20 mg tablet TAKE 2 TABLETS BY MOUTH EVERY DAY FOR 4 DAYS active Not Available Not Available No t Available ofloxacin 0.3 % ear drops INSTILL 4 DROPS INTO THE RIGHT EAR TWICE A DAY 10/02 completed Not Available Not Available Not Available citalopram 20 mg tablet TAKE 1 TABLET BY MOUTH EVERY DAY active Not Available Not Available No t Available nifedipine ER 60 mg tablet,exte nded release 24 hr TAKE 1 TABLET BY MOUTH TWICE A DAY active Not Available Not Available No t Available amoxicillin 875 mg-potassiu m clavulanate 125 mg tablet TAKE 1 TABLET BY MOUTH EVERY 12 HOURS active Not Available Not Available No t Available tobramycin 0.3 %-dexametha sone 0.1 % eye drops,suspe nsion APPLY 4 DROPS INTO THE RIGHT EAR TWICE A DAY FOR 2 WEEKS 10/30 completed Not Available Not Available Not Available oxycodone 5 mg tablet TAKE 1 TABLET ORAL EVERY FOUR HOURS NEEDED FOR PAIN 10/02 completed Not Available Not Available Not Available escitalopra m 20 mg tablet TAKE 1 TABLET BY MOUTH EVERY DAY 10/02 completed Not Available Not Available Not Available ciprofloxac in 0.3 %-dexametha sone 0.1 % ear drops,suspe nsion INSTILL 4 DROP INTO RIGHT EAR TWICE A DAY DIRECTED X 14 DAYS 10/30 completed Not Available Not Available Not Available chlorhexidi ne gluconate 0.12 % mouthwash RINSE MOUTH WITH 15ML (1 CAPFUL) FOR 30 SECONDS IN MORNING AND EVENING AFTER BRUSHING, THEN SPIT active Not Available Not Available No t Available GaviLyte-G 236 gram-22.74 gram-6.74 gram-5.86 gram oral solution PLEASE SEE ATTACHED FOR DETAILED DIRECTION S 10/02 completed Not Available Not Available Not Available Vitals Date Recorded Body height Body weight Provider Name and Address Organization Details Last Updated DateTime 10/31/2023 160.02 cm 26519.36 g Iad Woodruff [place] [facility] 10/31/2023 11:13:41 Social History None recorded. Functional Status None recorded. Mental Status None recorded. Family History Nothing Reported. Medical History Condition Response Hypertension Y High Cholesterol Y Gynecological HistoryNo gynecological history recorded. Obstetrics History GPAL:G 0 P 0 0 0 0 Past Encounters Encounter ID Performer Location Encounter Start Date Encounter Closed Date Diagnosis/Indication Diagnosis SNOMED-CT Code Diagnosis ICD10 Code Diagnosis IMO Codes Diagnosis Note [id number] JORDY SHAW MD [facility] [address] [address] 10/03/2023 10:48:43 10/03/2023 13:48:48 Abnormal granulation tissue 22656200 L92.9 Otorrhea of right ear 10 04304581 090447 H92.11 [id number] JORDY SHAW MD [facility] [address] [address] 10/31/2023 10:41:17 10/31/2023 12:03:54 Mixed conductive and sensorineural hearing loss of right ear 5338362581 9105 H90.71 Audiologic al evaluation results:Ri ght ear:Mild to moderately -severe mixed hearing loss with excellent word recognitio n.Left ear:DNTTym panometry: Right Ear:Type ALeft Ear:DNT Sensorineu ral hearing loss in left ear 8982380694 9109 H90.A22 [id number] JORDY SHAW MD [facility] [address] [address] 05/10/2024 09:02:53 05/10/2024 10:28:03 Mixed conductive and sensorineural hearing loss of right ear 6647379057 9105 H90.71 Audiologic al evaluation results:Ri ght ear:Mild to severe mixed hearing loss with excellent word recognitio n.Left ear:DNTTym panometry: Right Ear:Type ALeft Ear:DNT Sensorineu ral hearing loss in left ear 5932823284 9109 H90.A22 Health Concerns Section Related Observation LastModified by Organization Detai ls LastModified Time None Recorded Concern Status LastModified by Organization Details LastModified Time None Recorded Advance Directives Directive None Recorded Payers Insurance Date Sequence Insurance Name Policy Number Policy Larsen Covered Member ID Larsen Member ID Guarantor Name 05/10/2024 1 [place] [facility] [id number] Lotus Cuellar [id number] Lotus Cuellar Notes Date Note Type Note Provider Name and Address Organization Details Recorded Time 10/03/2023 text/html Status post right revision postauricular tympanoplasty with underlay fascia graft [...] compared to the left. JORDY SHAW MD [address] [place] [address], [address], [facility] 10/03/2023 11:15:09 10/31/2023 text/html Status post right postauricular tympanoplasty on August 12, 2023. 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 A 60% perforation of the posterior half of the tympanic membrane was repaired using an underlay fascia graft. JORDY SHAW MD [address], [address], [facility] 10/31/2023 12:02:16 05/10/2024 text/html Status post right postauricular tympanoplasty on August 12, 2023. 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 A 60% perforation of the posterior half of the tympanic membrane was repaired using an underlay fascia graft. Postoperative audiometric testing showed improvement in her hearing which may improve over time. She comes back today for 6-month audiogram JORDY SHAW MD [address] [place], [address], [facility] - [facility] 05/10/2024 10:26:59 OBGyn Episode No OBEpisode recorded.
== END 2025-04-30 14:26 | disposition home or self-care (01) ==
LOC: HO.MAMMO 14:25
PROVIDERS: Visit Provider Internal Medicine
DX: Z12.31 Encounter for screening mammogram for malignant neoplasm of breast (principal)
CPT/HCPCS: 77063; 77067

== ENCOUNTER → 2025-04-30 14:30 | Outpatient (BNV) | payer BC, SELFPAY | PROVIDERS: Visit Provider Internal Medicine | DX: Z12.31 Encounter for screening mammogram for malignant neoplasm of breast (principal) | CPT/HCPCS: 77063; 77067 ==